=== PATIENT | female | born 2005 | race Caucasian/White ===

== ENCOUNTER 2023-03-09 02:15 | Emergency (ER) | payer BC, MEDICAID, SELFPAY ==
--- NOTE | 2023-03-09 | ECG_ITS ---
Test Reason : CHEST PRESSURE Blood Pressure : / mmHG Vent. Rate : 103 BPM Atrial Rate : 103 BPM P-R Int : 126 ms QRS Dur : 060 ms QT Int : 340 ms P-R-T Axes : 071 068 021 degrees QTc Int : 445 ms Sinus tachycardia Otherwise normal ECG No previous ECGs available Referred By: Generic ED Physician Electronically Signed By:NICK REYEZ
[2023-03-09 02:27] VITALS: BP 118/78; PULSE 102; RESP 20; TEMP 37; O2SAT 97; BMI 20.5
--- NOTE | 2023-03-09 02:33 | MHC.EDTECH ---
PATIENT BLOOD DRAWN AND SENT TO LAB ,EKG TAKEN AND WAS READ BY PROVIDER .
[2023-03-09 02:34] LABS: Hematocrit 42.5 % (37.0-47.0); Hemoglobin 14.1 g/dl (12.0-16.0); Mean Corpuscular HGB Conc 33.2 g/dl (31.0-35.0); Mean Corpuscular Hemoglobin 29.5 pg (27.0-33.0); Mean Corpuscular Volume 88.9 fL (80.0-98.0); Mean Platelet Volume 10.8 fL (9.4-12.3); Platelet Count 311 X10*3/uL (160-400); Red Blood Count 4.78 X10*6/uL (4.20-5.50); Red Cell Distribution Width 12.4 % (11.0-16.0); White Blood Count 8.3 X10*3/uL (4.8-10.8)
[2023-03-09 02:51] LABS: Alanine Aminotransferase 10 U/L (0-31); Albumin Level 4.7 g/dL (3.5-5.0); Alkaline Phosphatase 60 U/L (39-117); Anion Gap 21 (12-20); Aspartate Amino Transferase 13 U/L (5-31); Bilirubin Total 1.2 mg/dL (0.0-1.0); Blood Urea Nitrogen 7 mg/dL (9-16); Calcium 10.4 mg/dL (8.4-10.2); Carbon Dioxide 22 mmol/L (22-29); Chloride 103 mmol/L (96-108); Estimated Glomerular Filt Rate > 60; Glucose Random 90 mg/dL (60-115); Potassium 4.5 mmol/L (3.3-5.1); Sodium 141 mmol/L (135-145)
[2023-03-09 02:57] LABS: Troponin-I High Sensitivity < 2.7 ng/L (<3.5-17.0)
[2023-03-09 03:28] VITALS: BP 118/68; RESP 19; TEMP 36.8; O2SAT 97
--- NOTE | 2023-03-09 03:43 | PC.NURSE ---
Pt alert and oriented. PT arrived from home ambulatory with faily member. PT reports 4 days of abdominal pain that radiates to chest for the past 4 days. PT endorsing vomiting and nausea- unable to keep fluids down. PT rports last bw on 03/06/23, and before then 4 days without a bm. Urine is dark yellow and foul smelling per pt report. PT endorses daily mairjuana and vaping. EKg completed, and labs drawn in triage. VSS, Continuous cardiac monitoring in place. Call kaye in reach. Plan of care ongoing
--- NOTE | 2023-03-09 04:04 | ED.GENADULT ---
HPI - General Adult General Chief complaint: General Medical Stated complaint: Chest pressure, vomiting Time Seen by Provider: 03/09/23 04:04 Source: patient Mode of arrival: ambulatory Limitations: no limitations History of Present Illness HPI narrative: 17-year-old female with no major medical problems presents with nausea, vomiting, chest pain, abdominal pain. Symptoms started approximately 2-3 days ago. The symptoms are intermittent. Patient does take Excedrin daily for chronic migraine headaches. She denies any significant alcohol intake, NSAID use other than the aspirin in the Excedrin. Patient describes a sharp lower sternal chest pain. The pain does not radiate. Worse with inspiration. She denies any history of PE or DVT. She has had no recent surgery or immobilization. She has no major chronic medical problems I would cause her to be probe coagulation. In addition, she is now experiencing some generalized abdominal pain but it focuses mostly in the epigastric area. The pain does not radiate. Associated with nausea vomiting. Nonbilious nonbloody, no coffee-ground emesis. She is passing flatus. Her symptoms do appear to be with eating and drinking. She has been having very difficult time tolerating any oral intake whatsoever. Patient denies any recent fevers, chills. She denies any diarrhea. Related Data Previous Rx's Medication Instructions Recorded famotidine 20 mg tablet 20 mg PO BID #30 tabs 03/09/23 metoclopramide HCl 10 mg tablet 10 mg PO Q6H PRN nausea and 03/09/23 (Reglan) vomiting #20 tabs ondansetron 4 mg disintegrating 4 mg PO Q8H PRN nausea and 03/09/23 tablet vomiting #10 tabs Allergies Allergy/AdvReac Type Severity Reaction Status Date / Time amoxicillin AdvReac Anaphylaxis Verified 03/09/23 02:30 bee pollen [bee stings] AdvReac Anaphylaxis Verified 03/09/23 02:31 Penicillins AdvReac Anaphylaxis Verified 03/09/23 02:31 pineapple AdvReac Anaphylaxis Verified 03/09/23 02:32 Review of Systems Review of Systems: CONSTITUTIONAL: Denies weight loss, fever and chills. HEENT: Denies changes in vision and hearing. RESPIRATORY: Denies SOB and cough. CV: Denies palpitations no CP. GI: + abdominal pain, nausea, vomiting - diarrhea. : Denies dysuria and urinary frequency. MSK: Denies myalgia and joint pain. SKIN: Denies rash and pruritus. NEUROLOGICAL: Denies headache and syncope. PSYCHIATRIC: Denies recent changes in mood. Denies anxiety and depression. All other ROS are negative unless in HPI [facility] Social History Social History Smoked in Last 30 Days: No Use of substances other than those prescribed or required for medical reasons: Yes Substance Use Type: Marijuana Substance Use Frequency: Daily Advance Directives: No Physical Exam ED Vital Signs: Vital Signs - 24 hr 03/09/23 02:27 03/09/23 03:28 Temperature 98.6 F 98.3 F Pulse Rate 102 H Respiratory Rate 20 19 Blood Pressure 118/78 118/68 Pulse Oximetry 97 97 Oxygen Delivery Method Room Air Room Air BMI result Body Mass Index 20.5 GEN: Well developed, no acute distress, alert, oriented HEENT: Normocephalic, atraumatic, normal external ears, nose appears normal, no oropharyngeal edema or exudates Eyes: Normal to appearance Neck: Supple, no lymphadenopathy Respiratory: Talks in complete sentences, no respiratory distress, clear to auscultation bilaterally Cardiovascular: Regular rate and rhythm, no murmurs rubs or gallops Abdomen: Soft, positive epigastric tenderness, nondistended, no guarding, no rebound Back: No CVA tenderness Extremities: No clubbing cyanosis or edema Neurologic: No focal neurologic deficits, cranial nerves 2-12 intact, strength is 5/5 bilaterally Skin: No rash Medical Decision Making Medical Decision Making MDM Narrative: Patient presents with chest pain, abdominal pain, nausea vomiting. Differential diagnosis includes gastritis, peptic ulcer, GERD, esophageal spasm, soft diet is, negative Dos Santos sign, negative McBurney's point tenderness be arguing against acute appendicitis and cholecystitis. Other possibilities include IBD, IBS. I doubt small bowel obstruction or ileus. Patient has no significant risk factors. She is passing flatus and stool. Patient will have routine laboratory analysis. There is no emergent indication for imaging at this time including CT scan or ultrasound. Will also order EKG to make sure there is no evidence of acute ischemia, cardiac dysrhythmia or right heart strain. Doubt PE as she has a negative PERC score. Will treat patient's symptoms and re-evaluate. Differential Diagnosis Differential Diagnoses: The differential diagnosis associated with the presentation includes (See above) Admission/Observation Consideration of admission/observation: Escalation of care including admission/observation considered Lab Data MDM Lab Attestation statement: I reviewed the patient's lab results. 03/09/23 02:29 03/09/23 02:29 Labs: Lab Results 03/09/23 Range/Units 02:29 WBC 8.3 (4.8-10.8) X10*3/uL RBC 4.78 (4.20-5.50) X10*6/uL Hgb 14.1 (12.0-16.0) g/dl Hct 42.5 (37.0-47.0) % MCV 88.9 (80.0-98.0) fL MCH 29.5 (27.0-33.0) pg MCHC 33.2 (31.0-35.0) g/dl RDW 12.4 (11.0-16.0) % Plt Count 311 (160-400) X10*3/uL MPV 10.8 (9.4-12.3) fL Absolute Nucleated RBC 0.000 (0.0-0.012) X10*3/uL Nucleated RBC % (auto) 0.0 (0.0-0.2) /100WBC Sodium 141 (135-145) mmol/L Potassium 4.5 (3.3-5.1) mmol/L Chloride 103 (96-108) mmol/L Carbon Dioxide 22 (22-29) mmol/L Anion Gap 21 H (12-20) BUN 7 L (9-16) mg/dL Creatinine 0.78 (0.5-1.4) mg/dL Estim Creat Clear Calc 99.0 Estimated GFR > 60 Random Glucose 90 (60-115) mg/dL Calcium 10.4 H (8.4-10.2) mg/dL Total Bilirubin 1.2 H (0.0-1.0) mg/dL AST 13 (5-31) U/L ALT 10 (0-31) U/L Alkaline Phosphatase 60 (39-117) U/L Troponin I High Sens < 2.7 (<3.5-17.0) ng/L Total Protein 8.0 (6.5-8.0) g/dL Albumin 4.7 (3.5-5.0) g/dL Independent Interpretation I performed an independent interpretation of an: EKG (Sinus tachycardia heart rate 103, no acute ST elevations depressions, normal intervals) Independent Historian Clinical information obtained from an independent historian. History obtained from or confirmed by: Parent Prescription Management I considered prescription management with: Pain Medication Discharge Plan Discharge Clinical Impression: Atypical chest pain, Abdominal pain, epigastric, Nausea & vomiting, History of migraine Instructions: Chest Pain (DC), Gastroesophageal Reflux Disease (ED), Abdominal Pain (ED), Acute Nausea and Vomiting (ED) Prescriptions: New metoclopramide HCl [Reglan] 10 mg tablet 10 mg PO Q6H PRN (Reason: nausea and vomiting) Qty: 20 0RF Rx Instructions: may also use for migraine famotidine 20 mg tablet 20 mg PO BID Qty: 30 0RF ondansetron 4 mg tablet,disintegrating 4 mg PO Q8H PRN (Reason: nausea and vomiting) Qty: 10 0RF Referrals: Physician,Unknown J [Primary Care Provider] - (Primary care provider in 1 week.)
[2023-03-09] MEDS: Acetaminophen 325 MG TABLET 975 MG PO (04:53)
[2023-03-09] MEDS: Ondansetron ODT 4 MG TAB.RAPDIS TRANSLINGU (04:53)
[2023-03-09] MEDS: Famotidine 20 MG TABLET PO (04:53)
[2023-03-09] MEDS: Magnesium Hydrox/Alum Hydrox 30 ML ORAL.SUSP PO (04:53)
== END 2023-03-09 05:59 | disposition home or self-care (01) ==
PROVIDERS: Emergency Provider Emergency Medicine
DX: R07.89 Other chest pain (principal); R10.13 Epigastric pain; G43.909 Migraine, unspecified, not intractable, without status migrainosus; R11.2 Nausea with vomiting, unspecified; F12.90 Cannabis use, unspecified, uncomplicated; Z79.899 Other long term (current) drug therapy
CPT/HCPCS: 36415; 80053; 84484; 85027; 93005; 99283; 99285